=== PATIENT | female | born 1960 | race American Indian/Alaskan Native ===

== ENCOUNTER 2017-05-23 13:40 | Emergency (ER) | payer OTHER ==
[~2017-05-23] VITALS: Ht 162.6 cm; Wt 112.0 kg
[2017-05-23] MEDS ORDERED: MOTION SICKNESS25 M4 PO (14:22)
[2017-05-23] MEDS ORDERED: TREXALL5 MG PO (14:23)
[2017-05-23] MEDS ORDERED: PREDNISONE20 MG PO (14:24)
[2017-05-23] MEDS ORDERED: LEVEMIR100 UNIT/1 SUB-Q (14:25)
[2017-05-23] MEDS ORDERED: MORPHINE SULFAT15 M1 PO (14:26)
[2017-05-23] MEDS ORDERED: VALIUM5 MG PO (14:27)
[2017-05-23] MEDS ORDERED: ATIVAN0.5 MG PO (14:29)
[2017-05-23] MEDS ORDERED: NORVASC5 MG PO (14:32)
--- NOTE | 2017-05-23 19:12 | EKG ---
[facility] [address] [facility] [place] [address] Signed Normal sinus rhythm Normal ECG No previous ECGs available Confirmed by DAMIEN BAL MD ([id number]) on 05/23/2017 7:12:38 PM Electronically Signed By: DAMIEN BAL MD 05/23/171911 PATIENT NAME: MARTIN ELYCONY Electrocardiogram DATE OF : 60 PHYSICIAN: DAMIEN BAL MD REPORT #: [id number] REPORT IS CONFIDENTIAL AND NOT TO BE RELEASED WITHOUT AUTHORIZATION
== END 2017-05-23 15:45 | disposition home or self-care (01) ==
LOC: ED 13:40
DX: R53.1 Weakness (principal); D72.1 Eosinophilia; I11.0 Hypertensive heart disease with heart failure; I50.9 Heart failure, unspecified; E11.9 Type 2 diabetes mellitus without complications; J44.9 Chronic obstructive pulmonary disease, unspecified; M06.9 Rheumatoid arthritis, unspecified; L40.9 Psoriasis, unspecified; F17.200 Nicotine dependence, unspecified, uncomplicated; Z79.52 Long term (current) use of systemic steroids; Z79.899 Other long term (current) drug therapy; Z79.4 Long term (current) use of insulin; Z98.51 Tubal ligation status; Z88.8 Allergy status to other drugs, medicaments and biological substances
CPT/HCPCS: 71010; 80053; 81001; 83605; 83880; 84484; 85025; 93005; 93010; 94640; 99284